=== PATIENT | male | born 1980 | race Caucasian/White ===

== ENCOUNTER 2017-07-13 11:23 | Emergency (ER) | payer OTHER ==
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
[2017-07-13] MEDS ORDERED: ONDANSETRON HCL INJ/PF 4 MG/2 ML SDV IV ONE ×2 (12:02→13:52)
[2017-07-13] MEDS ORDERED: HYDROMORPHONE HCL INJ/PF 2 MG/ML AMPULE IV ONE ×2 (12:02→13:52)
[2017-07-13 12:20] LABS: ABSOLUTE BASOPHILS # (AUTO) 0.1 10^3/uL (0.0-0.2); ABSOLUTE EOSINOPHILS # (AUTO) 0.4 10^3/uL (0.0-0.6); ABSOLUTE LYMPHOCYTES (AUTO) 1.7 10^3/uL (0.5-4.7); ABSOLUTE MONOCYTES (AUTO) 0.9 10^3/uL (0.1-1.4); ABSOLUTE NEUT (AUTO) 10.9 10^3/uL (1.7-8.2); BASOPHILS % (AUTO) 0.4 % (0-2); EOSINOPHILS % (AUTO) 2.9 % (0-6); HEMATOCRIT 50.7 % (37.9-51.0); HEMOGLOBIN 17.4 g/dL (13.5-17.0); LYMPHOCYTES % (AUTO) 12.2 % (13-45); MEAN CORPUSCULAR HEMOGLOBIN 29.9 pg (27.0-33.4); MEAN CORPUSCULAR HGB CONC 34.3 g/dL (32.0-36.0); MEAN CORPUSCULAR VOLUME 87 fl (80-97); MONOCYTES % (AUTO) 6.3 % (3-13); PLATELET COUNT 274 10^3/uL (150-450); RED BLOOD COUNT 5.81 10^6/uL (4.35-5.55); SEGMENTED NEUTROPHILS % (AUTO) 78.2 % (42-78); TOTAL CELLS COUNTED % (AUTO) 100 %
[2017-07-13 12:43] LABS: ALANINE AMINOTRANSFERASE 44 U/L (21-72); ALBUMIN 3.8 g/dL (3.5-5.0); ALKALINE PHOSPHATASE 60 U/L (38-126); ANION GAP 8 (5-19); ASPARTATE AMINO TRANSFERASE 34 U/L (17-59); BILIRUBIN,DIRECT 0.3 mg/dL (0.0-0.4); BILIRUBIN,TOTAL 0.4 mg/dL (0.2-1.3); BLOOD UREA NITROGEN 12 mg/dL (7-20); CARBON DIOXIDE 26 mmol/L (22-30); CHLORIDE 109 mmol/L (98-107); GLUCOSE 113 mg/dL (75-110); POTASSIUM 4.1 mmol/L (3.6-5.0); SODIUM 143.2 mmol/L (137-145); TOTAL PROTEIN 6.4 g/dL (6.3-8.2)
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
[2017-07-13 16:05] VITALS: BP 144/96
== END 2017-07-13 16:12 | disposition home or self-care (01) ==
LOC: ER 11:23
DX: S32.019A Unspecified fracture of first lumbar vertebra, initial encounter for closed fracture (principal); S32.029A Unspecified fracture of second lumbar vertebra, initial encounter for closed fracture; S32.039A Unspecified fracture of third lumbar vertebra, initial encounter for closed fracture; S32.049A Unspecified fracture of fourth lumbar vertebra, initial encounter for closed fracture; S50.312A Abrasion of left elbow, initial encounter; S80.212A Abrasion, left knee, initial encounter; M54.5 Low back pain; V29.40XA Motorcycle driver injured in collision with unspecified motor vehicles in traffic accident, initial encounter; F17.210 Nicotine dependence, cigarettes, uncomplicated
CPT/HCPCS: 96376; 99284; 96374; 96375; 36415; 82962; 85025; 80053; 72050; 72110; 72070; J1170; J2405

== ENCOUNTER 2017-11-12 16:27 | Emergency (ER) | payer MEDICARE, MEDICAID ==
[2017-11-12] MEDS ORDERED: HYDROMORPHONE HCL INJ/PF 2 MG/ML AMPULE IM ONE (17:23)
[2017-11-12] MEDS ORDERED: METOCLOPRAMIDE HCL 10 MG TABLET PO ONE (17:23)
[2017-11-12] MEDS ORDERED: DIPHENHYDRAMINE HCL 50 MG CAPSULE PO ONE (17:23)
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
--- NOTE | 2017-11-12 18:54 | ER Document Report ---
ED General - General Chief Complaint: High Blood Pressure Stated Complaint: BLOOD PRESSURE ISSUE Time Seen by Provider: 11/12/17 17:18 Mode of Arrival: Ambulatory Notes: Patient is a 37-year-old male that presents to the emergency department for chief complaint of high blood pressure and back pain. Patient states that he was at his eye doctor appointment today and they took his blood pressure and was elevated in the 190s systolic, so they did not see him and told him to go to the emergency department. He states that he has a history of high blood pressure, but has not been on medication in some time. He states that usually is higher when his back is irritated, which it is today. He has a history of chronic low back pain, and his back has been bothering him more. He currently rates the back pain as a 4 out of 10, nonradiating to the lower extremities, no saddle anesthesia or paresthesias, numbness, weakness or tingling in his lower extremities. He also did have a headache prior to ED arrival, he does have a history of headaches, due to his eye issues including glaucoma, but the headache is mild at this time, and nearly resolved from earlier. Denies any vomiting associated with it. Past Medical History: Glaucoma, chronic low back pain, hypertension Past Surgical History: Multiple eye surgeries, multiple lithotripsies, left knee surgery Social History: Admits to smoking cigarettes, denies alcohol or drug use Family History: Reviewed and noncontributory for presenting illness Allergies: Reviewed, see documented allergy list. REVIEW OF SYSTEMS: Unless otherwise stated in this report the patient's positive and negative responses for review of systems for constitutional, eyes, ENT, cardiovascular, respiratory, gastrointestinal, neurological, genitourinary, musculoskeletal, and integumentary systems and related systems to the presenting problem are either as stated in the HPI or were not pertinent or were negative for the symptoms and/or complaints related to the presenting medical problem. PHYSICAL EXAMINATION: Vital signs reviewed, nursing noted reviewed. GENERAL: Well-appearing, well-nourished and in no acute distress. HEAD: Atraumatic, normocephalic. EYES: Eyes appear normal, extraocular movements intact, sclera anicteric, conjunctiva are normal. PERRLA ENT: nares patent, oropharynx clear without exudates. Moist mucous membranes. No tenderness with palpation over the sinuses NECK: Normal range of motion, supple without lymphadenopathy LUNGS: Breath sounds clear to auscultation bilaterally and equal. No wheezes rales or rhonchi. HEART: Regular rate and rhythm without murmurs ABDOMEN: Soft, nontender, normoactive bowel sounds. No rebound, guarding, or rigidity. No masses appreciated. Back: Mild paraspinal tenderness the lumbar spine bilaterally, no midline tenderness or step-offs or deformities noted. EXTREMITIES: Nontender, good range of motion, no pitting or edema. NEUROLOGICAL: No focal neurological deficits. Moves all extremities spontaneously Motor and sensory grossly intact on exam. Deep tendon reflexes are +2/4 in the patellar and Achilles tendons bilaterally. Negative straight leg raising bilaterally PSYCH: Normal mood, normal affect. SKIN: Warm, Dry, normal turgor, no rashes or lesions noted on exposed skin TRAVEL OUTSIDE OF THE [place] IN LAST 30 DAYS: No - Related Data Allergies/Adverse Reactions: No Known Allergies Allergy (Verified 11/12/17 17:21) Past Medical History - General Information source: Patient - Social History Smoking Status: Current Every Day Smoker Chew tobacco use (# tins/day): No Frequency of alcohol use: Rare Drug Abuse: None Family History: Reviewed & Not Pertinent Patient has suicidal ideation: No Patient has homicidal ideation: No - Past Medical History Cardiac Medical History: Reports: Hx Hypertension Renal/ Medical History: Reports: Hx Kidney Stones. Denies: Hx Peritoneal Dialysis Traumatic Medical History: Reports: Hx Spine Fracture Past Surgical History: Reports: Hx Orthopedic Surgery - left knee Physical Exam - Vital signs Vitals: Temp Pulse Resp BP Pulse Ox 98.1 F 88 20 182/112 H 96 11/12/17 16:36 11/12/17 16:36 11/12/17 16:36 11/12/17 16:36 11/12/17 16:36 Course - Re-evaluation Re-evalutation: Patient seen and examined vital signs reviewed. Patient was treated with IV Dilaudid, Reglan, and Benadryl ordered by the triage provider, upon my evaluation the patient was feeling significantly better , his blood pressure was still high, he was given a dose of oral hydrochlorothiazide, which she was previously on and tolerated in the past. The patient was re-evaluated and was significantly improved, and stable blood pressure was improving as well Evaluation was most consistent with hypertension, requiring treatment, headache and chronic low back pain, patient was given a prescription for hydrochlorothiazide 25 mg for 2 weeks, while he tries to find a primary care provider. Patient was agreeable to take this medication, and advised if his symptoms returned to return to the emergency department if needed. Results were discussed with the patient at this point, after careful consideration I feel that that patient can be discharged from the emergency department, the patient was educated treatments and reasons to return to the emergency department based on their presumed diagnosis as noted above, they were advised to followup with a primary care physician in 2-3 days. Patient was agreeable to plan of care. *Note is created using voice recognition software and may contain spelling, syntax or grammatical errors. - Vital Signs Vital signs: Temp Pulse Resp BP Pulse Ox 98.1 F 88 13 174/115 H 96 11/12/17 16:36 11/12/17 16:36 11/12/17 19:01 11/12/17 19:01 11/12/17 19:01 Discharge - Discharge Clinical Impression: Hypertension Qualifiers: Hypertension type: unspecified Qualified Code(s): I10 - Essential (primary) hypertension Back pain Qualifiers: Back pain location: low back pain Chronicity: chronic Back pain laterality: bilateral Sciatica presence: without sciatica Qualified Code(s): M54.5 - Low back pain Disposition: HOME, SELF-CARE Instructions: High Blood Pressure, Requiring Treatment ([facility]), Hydrochlorothiazide ([facility]) Additional Instructions: Please return to the emergency department if you have any worsening, or concern of your symptoms. Please return to the emergency department if you develop chest pain, difficulty breathing, severe abdominal pain, or ongoing vomiting. Please follow-up with your primary care physician in 2-3 days and any other recommended physicians. If prescribed, take all medications as directed. If you have any questions or concerns do not hesitate to return the emergency department for evaluation. Take the hydrochlorothiazide as prescribed, please follow-up with a primary care physician, to continue this medication, you will need a refill. Prescriptions: Hydrochlorothiazide 25 mg PO DAILY #14 tablet Referrals: [facility] [Provider Group] - Follow up in 3-5 days NORIS KEN MD [COMMUNITY BASED STAFF] - Follow up in 3-5 days (primary care. )
[2017-11-12] MEDS ORDERED: HYDROCHLOROTHIAZIDE 25 MG TABLET PO ONE (19:07)
[2017-11-12 19:15] VITALS: BP 174/115
== END 2017-11-12 19:23 | disposition home or self-care (01) ==
LOC: ER 16:27
DX: I10 Essential (primary) hypertension (principal); M54.5 Low back pain; G89.29 Other chronic pain; Z87.442 Personal history of urinary calculi
CPT/HCPCS: 99283; A9270 ×2; J1170

== ENCOUNTER 2019-04-20 16:18 | Emergency (ER) | payer MEDICARE, MEDICAID ==
[2019-04-20] MEDS ORDERED: CLONIDINE HCL 0.1 MG TABLET PO ONE (17:19)
[2019-04-20] MEDS ORDERED: OXYMETAZOLINE HCL 0.05% NASAL SPRAY 15 ML BOTTLE NASL ONE (17:19)
--- NOTE | 2019-04-20 17:24 | ER Document Report ---
HPI - HPI Time Seen by Provider: 04/20/19 16:58 Pain Level: Denies Notes: Patient is a 39-year-old male with a history of hypertension, on lisinopril 20 mg, presents complaining of having a nosebleed intermittently for the past few days to the left nostril. Patient states that it began again this morning when he was feeling stressed out. He was able to get the bleeding stopped prior to arrival. Patient states that he is able to breathe out of the nostril. He is not on any blood thinning medications. He has not had any recent injury. Denies drug allergies. He is otherwise able to eat and drink without difficulty. He is urinating normally and having normal bowel movements. Denies any headache, fever, head injury, neck pain, changes in vision/speech/mentation/hearing, URI, sore throat, chest pain, palpitations, syncope, cough, shortness of breath, wheeze, dyspnea, abdominal pain, nausea/vomiting/diarrhea, urinary retention, dysuria, hematuria, loss of control of bowel or bladder, numbness/tingling, saddle anesthesia, muscle paralysis/weakness, or rash. - ROS Systems Reviewed and Negative: Yes All other systems reviewed and negative - REPRODUCTIVE Reproductive: DENIES: : Past Medical History - Social History Smoking Status: Never Smoker Family History: Reviewed & Not Pertinent Patient has suicidal ideation: No Patient has homicidal ideation: No - Past Medical History Cardiac Medical History: Reports: Hx Hypertension Renal/ Medical History: Reports: Hx Kidney Stones. Denies: Hx Peritoneal Dialysis Traumatic Medical History: Reports: Hx Spine Fracture Past Surgical History: Reports: Hx Orthopedic Surgery - left knee Vertical Provider Document - CONSTITUTIONAL Agree With Documented VS: Yes Notes: PHYSICAL EXAMINATION: GENERAL: Well-appearing, well-nourished and in no acute distress. HEAD: Atraumatic, normocephalic. EYES: Pupils equal round and reactive to light, extraocular movements intact, sclera anicteric, conjunctiva are normal. ENT: EAC clear b/l. TM's intact b/l without erythema, fluid, or perforation. Nares patent and without discharge. oropharynx dried blood without exudates. No tonsilar hypertrophy or erythema. Moist mucous membranes. No sinus tenderness. NECK: Normal range of motion, supple without lymphadenopathy LUNGS: Breath sounds clear to auscultation bilaterally and equal. No wheezes rales or rhonchi. HEART: Regular rate and rhythm without murmurs, rubs, gallops. ABDOMEN: Soft, nontender, nondistended abdomen. No guarding, no rebound. Normal bowel sounds present. No CVA tenderness bilaterally. Musculoskeletal: FROM to passive/active. Strength 5+/5. Extremities: No cyanosis, clubbing, or edema b/l. Peripheral pulses 2+. Capillary refill less than 3 seconds. NEUROLOGICAL: Cranial nerves grossly intact. Normal speech, normal gait. Normal sensory, motor exams PSYCH: Normal mood, normal affect. SKIN: Warm, Dry, normal turgor, no rashes or lesions noted. - INFECTION CONTROL TRAVEL OUTSIDE OF THE [place] IN LAST 30 DAYS: No Course - Re-evaluation Re-evalutation: 04/20/19 17:20 Patient is an afebrile, well-hydrated, 39-year-old male who presents with a resolved nosebleed to left nare and elevated blood pressure. He is otherwise asymptomatic. Vitals are except without significant tachycardia, tachypnea, or hypoxia. PE is otherwise unremarkable for any focal neurological deficits. Patient is nontoxic-appearing and is tolerating p.o. without difficulty. Afrin was provided today and epistaxis instructions reviewed thoroughly. Patient was given 1 dose of clonidine p.o. No further work-up warranted. Low suspicion for any acute intracranial pathology, ACS, PE, pneumothorax, pericarditis, dissection, acute blood loss warranting blood transfusion, shock, or other systemic emergent condition at this time. Patient aware that condition can change and he needs to monitor closely and seek medical attention if so. I will send him home with a low dose HCTZ that he may add to his lisinopril. Patient is to monitor blood pressure very closely. Recheck with your PCM in 3 to 5 days. Return to the ED with any other worsening/concerning symptoms. Patient is in agreement. - Vital Signs Vital signs: Temp Pulse Resp BP Pulse Ox 97.6 F 82 18 168/106 H 96 04/20/19 16:22 04/20/19 16:22 04/20/19 16:22 04/20/19 16:22 04/20/19 16:22 Discharge - Discharge Clinical Impression: Bleeding nose, Elevated blood pressure reading Condition: Stable Disposition: HOME, SELF-CARE Instructions: Nosebleed Instructions ([facility]) Additional Instructions: Maintain adequate fluid and food intake Take home medications as directed Low sodium/fat diet Monitor blood pressure daily and keep a log Monitor symptoms for any acute changes Recheck with your PCM in 3-5 days Consider a follow-up with cardiology/ENT Return to the ED with any worsening symptoms and/or development of fever, headache, chest pain, palpitations, syncope, shortness of breath, trouble breathing, abdominal pain, n/v/d, blood in stool/urine, loss of control of bowel/bladder, urinary retention, muscle weakness/paralysis, numbness/tingling, or other worsening symptoms that are concerning to you. Prescriptions: Hydrochlorothiazide 12.5 mg PO DAILY #30 tablet Forms: Elevated Blood Pressure Referrals: DEWAYNE MANLEY DO [ASSOCIATE] - Follow up as needed SALO DUTTON MD [ACTIVE STAFF] - Follow up in 1 week
[2019-04-20 17:30] VITALS: BP 153/88
== END 2019-04-20 18:11 | disposition home or self-care (01) ==
LOC: ER 16:18
DX: R04.0 Epistaxis (principal); I10 Essential (primary) hypertension; Z87.442 Personal history of urinary calculi
CPT/HCPCS: 99283; A9270 ×2; J3490

== ENCOUNTER 2019-06-24 13:17 | Inpatient (IN) | payer MEDICARE, MEDICAID ==
--- NOTE | 2019-06-24 15:08 | ER Document Report ---
ED General - General Chief Complaint: Chest Pain Stated Complaint: COUGH,CHEST PAIN Primary Care Provider: [facility] [Provider Group] - Follow up as needed Notes: 39-year-old male presents with ongoing chest pain shortness of breath it has been is intermittent substernal radiates to left shoulder not down the arm with no numbness or tingling. Has had intermittent shortness of breath cough with productive sputum since November and has been treated for bronchitis several times. He has a long smoking history. No orthopnea or leg swelling. No diagnosis of cardiac problems TRAVEL OUTSIDE OF THE [place] IN LAST 30 DAYS: No - Related Data Allergies/Adverse Reactions: No Known Allergies Allergy (Verified 11/12/17 17:21) Past Medical History - Social History Smoking Status: Current Every Day Smoker Smoking Education Provided: Yes - The patient ED visit today was directly related to their abuse of tobacco. Family History: Reviewed & Not Pertinent - Past Medical History Cardiac Medical History: Reports: Hx Hypertension Renal/ Medical History: Reports: Hx Kidney Stones. Denies: Hx Peritoneal Dialysis Traumatic Medical History: Reports: Hx Spine Fracture Past Surgical History: Reports: Hx Orthopedic Surgery - left knee Physical Exam - Vital signs Vitals: Temp Pulse Resp BP Pulse Ox 97.8 F 102 H 24 H 160/127 H 97 06/24/19 14:53 06/24/19 14:53 06/24/19 14:53 06/24/19 14:53 06/24/19 14:53 Course - Re-evaluation Re-evalutation: 06/24/19 17:00 Patient presents with worsening shortness of breath cough some of it is exertional most concerning for heart failure with intermittent chest pain. He probably does not have bronchitis. We will test for COVID check x-ray for pneumonia but is more likely going to be cardiac in nature given his risk factors despite his young age. BNP is elevated, cardiomegaly on x-ray. Patient will be admitted for further work-up. Discussed with Dr. FIDE Mendez. Niru testing is pending. - Vital Signs Vital signs: Temp Pulse Resp BP Pulse Ox 98.7 F 102 H 24 H 160/127 H 97 06/24/19 15:06 06/24/19 14:53 06/24/19 14:53 06/24/19 14:53 06/24/19 14:53 - Laboratory Result Diagrams: 06/24/19 15:51 06/24/19 15:51 Laboratory results interpreted by me: 06/24/19 06/24/19 06/24/19 15:51 15:51 15:51 RDW 14.3 H Glucose 216 H NT-Pro-B Natriuret Pep 2060 H - Diagnostic Test Radiology reviewed: Image reviewed, Reports reviewed - EKG Interpretation by Me Rate: Normal Rhythm: NSR Voltage: Consistant with LVH When compared to previous EKG there are: Previous EKG unavailable Discharge - Discharge Clinical Impression: Shortness of breath Condition: Fair Disposition: ADMITTED INPATIENT Admitting Provider: Andrew (Hospitalist) Unit Admitted: Telemetry Additional Instructions: As we discussed your symptoms might be due to bronchitis and smoking and we are going to treat this, but you need a full evaluation as an outpatient for congestive heart failure and heart disease. We did not find wet lungs, pulmonary edema, pneumonia, or coronavirus today on your testing. Follow-up with your regular doctor within 5 days. Prescriptions: Ipratropium/Albuterol Sulfate [Combivent Respimat 4 gm Mdi] 1 puff IH Q4 #1 aer.w.adap Prednisone [Deltasone 20 mg Tablet] 3 tab PO DAILY 5 Days tablet Referrals: [facility] [Provider Group] - Follow up as needed
--- NOTE | 2019-06-24 15:43 | RADIOLOGY REPORT (SQ) ---
EXAM DESCRIPTION: CHEST SINGLE VIEW IMAGES COMPLETED DATE/TIME: 06/24/2019 3:29 pm REASON FOR STUDY: CP COMPARISON: None. EXAM PARAMETERS: NUMBER OF VIEWS: One view. TECHNIQUE: An AP view of the chest was obtained. RADIATION DOSE: NA LIMITATIONS: None. FINDINGS: LUNGS AND PLEURA: No consolidation, pleural effusion or pneumothorax. MEDIASTINUM AND HILAR STRUCTURES: No mediastinal or hilar contour abnormality. HEART AND VASCULAR STRUCTURES: The cardiac silhouette is borderline enlarged. BONES: No acute findings. HARDWARE: None in the chest. OTHER: No other finding. IMPRESSION: Borderline cardiomegaly without a superimposed acute cardiopulmonary process. TECHNICAL DOCUMENTATION: JOB ID: [id number] 2010 [employer]- All Rights Reserved Reading location - IP/workstation name: [email or web address]
[2019-06-24 16:13] LABS: ABSOLUTE BASOPHILS # (AUTO) 0.1 10^3/uL (0.0-0.2); ABSOLUTE EOSINOPHILS # (AUTO) 0.5 10^3/uL (0.0-0.6); ABSOLUTE MONOCYTES (AUTO) 0.7 10^3/uL (0.1-1.4); ABSOLUTE NEUT (AUTO) 7.3 10^3/uL (1.7-8.2); BASOPHILS % (AUTO) 0.7 % (0-2); EOSINOPHILS % (AUTO) 4.6 % (0-6); HEMATOCRIT 42.2 % (37.9-51.0); HEMOGLOBIN 14.6 g/dL (13.5-17.0); LYMPHOCYTES % (AUTO) 19.3 % (13-45); MEAN CORPUSCULAR HEMOGLOBIN 30.4 pg (27.0-33.4); MEAN CORPUSCULAR HGB CONC 34.5 g/dL (32.0-36.0); MEAN CORPUSCULAR VOLUME 88 fl (80-97); MONOCYTES % (AUTO) 6.3 % (3-13); PLATELET COUNT 285 10^3/uL (150-450); RED BLOOD COUNT 4.79 10^6/uL (4.35-5.55); RED CELL DISTRIBUTION WIDTH 14.3 % (11.5-14.0); SEGMENTED NEUTROPHILS % (AUTO) 69.1 % (42-78); TOTAL CELLS COUNTED % (AUTO) 100 %; WHITE BLOOD COUNT 10.5 10^3/uL (4.0-10.5)
[2019-06-24 16:21] LABS: ANION GAP 7 (5-19); BLOOD UREA NITROGEN 13 mg/dL (7-20); CALCIUM 8.7 mg/dL (8.4-10.2); CARBON DIOXIDE 27 mmol/L (22-30); CHLORIDE 104 mmol/L (98-107); GLUCOSE 216 mg/dL (75-110); POTASSIUM 3.8 mmol/L (3.6-5.0)
[2019-06-24] MEDS ORDERED: ZOLPIDEM TARTRATE 5 MG TABLET PO PRN (17:20)
[2019-06-24] MEDS ORDERED: IPRATROPIUM/ALBUTEROL 0.5-2.5 MG/3 ML AMPUL NEB PRN (17:20)
[2019-06-24] MEDS ORDERED: ONDANSETRON 4 MG TAB.RAPDIS PO PRN (17:20)
[2019-06-24] MEDS ORDERED: OXYCODONE-ACETAMINOPHEN 5-325 MG TABLET PO PRN (17:20)
[2019-06-24] MEDS ORDERED: NITROGLYCERIN 0.4 MG/TAB 25 TAB/BOTTLE SL PRN (17:26)
[2019-06-24 18:05] LABS: URINE AMPHETAMINES SCREEN NEGATIVE; URINE BARBITURATES SCREEN NEGATIVE; URINE BENZODIAZEPINES SCREEN NEGATIVE; URINE COCAINE SCREEN NEGATIVE; URINE MARIJUANA (THC) SCREEN NEGATIVE; URINE METHADONE SCREEN NEGATIVE; URINE PHENCYCLIDINE SCREEN NEGATIVE
[2019-06-24] MEDS: ENOXAPARIN SODIUM INJ 40 MG/0.4 ML DISP.SYRIN SUBCUT SCH (18:26)
[2019-06-24] MEDS: NITROGLYCERIN 2% OINTMENT 1 GM PACKET TP SCH ×2 (18:26→23:10)
[2019-06-24] MEDS: HYDRALAZINE HCL INJ/PF 20 MG/1 ML SDV IV PRN (18:26)
--- NOTE | 2019-06-24 18:26 | PDOC H&P ---
History of Present Illness Admission Date/PCP: 06/24/19 17:19 Patient complains of: Difficulty breathing and shortness of breath History of Present Illness: LUIS ROCHA is a 39 year old male Patient presents to the emergency room with complaints of difficulty breathing and shortness of breath. He also complains of chest pain with radiation to his left shoulder. He says he has had a cough intermittently since November. This is associated with a whitish sputum. He does complain of difficulty ambulating as this is associated with shortness of breath. He denies any leg swelling. In the emergency room patient was found to have a pretty elevated blood pressure with systolic of more than 120. He claims to be compliant with his medications and said he did not use it only today. He admits to not seen a PCP for a while. He denies any orthopnea dizziness. He denies any prior history of coronary artery disease. His chest x-ray shows cardiomegaly Past Medical History Cardiac Medical History: Reports: Hypertension Past Surgical History Past Surgical History: Reports: Orthopedic Surgery - left knee Social History Information Source: Patient Smoking Status: Current Every Day Smoker - Advance Directive Resuscitation Status: Full Code Family History Family History: Reviewed & Not Pertinent Parental Family History Reviewed: Yes Children Family History Reviewed: Yes Sibling(s) Family History Reviewed.: Yes Medication/Allergy Home Medications: Lidocaine [Lidovex] 1 gm TP BIDP PRN #1 cream..g. 07/13/17 Methocarbamol [Robaxin 750 mg Tablet] 750 mg PO ASDIR PRN #40 tablet 07/13/17 Ondansetron [Ondansetron Odt] 4 mg PO Q4HP PRN #20 tab.rapdis 07/13/17 Oxycodone HCl/Acetaminophen [Percocet 5-325 mg Tablet] 1 - 2 tab PO Q4HP PRN #30 tab 07/13/17 Hydrochlorothiazide 25 mg PO DAILY #14 tablet 11/12/17 Hydrochlorothiazide 12.5 mg PO DAILY #30 tablet 04/20/19 Ipratropium/Albuterol Sulfate [Combivent Respimat 4 gm Mdi] 1 puff IH Q4 #1 aer.w.adap 06/24/19 Prednisone [Deltasone 20 mg Tablet] 3 tab PO DAILY 5 Days tablet 06/24/19 Allergies/Adverse Reactions: No Known Allergies Allergy (Verified 11/12/17 17:21) Review of Systems All systems: reviewed and no additional remarkable complaints except as stated Cardiovascular: PRESENT: dyspnea on exertion, orthropnea. ABSENT: chest pain, palpitations Respiratory: PRESENT: dyspnea. ABSENT: cough Physical Exam Vital Signs: Temp Pulse Resp BP Pulse Ox 98.7 F 102 H 24 H 160/127 H 97 06/24/19 15:06 06/24/19 14:53 06/24/19 14:53 06/24/19 14:53 06/24/19 14:53 Intake & Output 06/23/19 06/24/19 06/25/19 06:59 06:59 06:59 Weight 131.542 kg General appearance: PRESENT: no acute distress, well-developed, well-nourished Head exam: PRESENT: atraumatic, normocephalic Eye exam: PRESENT: conjunctiva pink, EOMI, PERRLA. ABSENT: scleral icterus Ear exam: PRESENT: normal external ear exam Mouth exam: PRESENT: moist, tongue midline Neck exam: ABSENT: carotid bruit, JVD, lymphadenopathy, thyromegaly Respiratory exam: PRESENT: clear to auscultation gio. ABSENT: rales, rhonchi, wheezes Cardiovascular exam: PRESENT: RRR, +S1, +S2. ABSENT: diastolic murmur, rubs, systolic murmur Pulses: PRESENT: normal dorsalis pedis pul Vascular exam: PRESENT: normal capillary refill GI/Abdominal exam: PRESENT: normal bowel sounds, soft. ABSENT: distended, guard ing, mass, organolmegaly, rebound, tenderness Rectal exam: PRESENT: deferred Extremities exam: PRESENT: full ROM. ABSENT: calf tenderness, clubbing, pedal edema Neurological exam: PRESENT: alert, awake, oriented to person, oriented to place, oriented to time, oriented to situation, CN II-XII grossly intact. ABSENT: motor sensory deficit Psychiatric exam: PRESENT: normal mood. ABSENT: homicidal ideation, suicidal ideation Skin exam: PRESENT: dry, intact, warm. ABSENT: cyanosis, rash Results Laboratory Results: 06/24/19 15:51 06/24/19 15:51 06/24/19 06/24/19 15:51 15:51 WBC 10.5 RBC 4.79 Hgb 14.6 Hct 42.2 MCV 88 MCH 30.4 MCHC 34.5 RDW 14.3 H Plt Count 285 Seg Neutrophils % 69.1 Sodium 137.8 Potassium 3.8 Chloride 104 Carbon Dioxide 27 Anion Gap 7 BUN 13 Creatinine 1.01 Est GFR ( Amer) > 60 Glucose 216 H Calcium 8.7 06/24/19 15:51 NT-Pro-B Natriuret Pep 2060 H Impressions: Chest X-Ray 06/24/19 15:00 IMPRESSION: Borderline cardiomegaly without a superimposed acute cardiopulmonary process. Assessment and Plan - Diagnosis (1) CHF (congestive heart failure) Qualifiers: Heart failure type: unspecified Heart failure chronicity: acute Qualified Code(s): I50.9 - Heart failure, unspecified Is this a current diagnosis for this admission?: Yes Plan: Patient actually has no prior history of CHF although his clinical presentation is consistent with this. At this time we will have to wait to review the echocardiogram to determine what class of CHF he does have We will continue with diuresis, and attempt to control blood pressure. Consultations will depend on his hospital course EKG shows sinus tachycardia with nonspecific T wave abnormalities. Drug screen is negative (2) Hypertensive emergency Is this a current diagnosis for this admission?: Yes Plan: Patient does have a history of hypertension. He says he is compliant with his medications. Blood pressure is uncontrolled. Will place him on Nitropaste which may also help with his preload reduction. Will allow adjust his medicati ons for optimal blood pressure control (3) Chest pain at rest Is this a current diagnosis for this admission?: Yes Plan: We will obtain serial cardiac enzymes and follow-up with echocardiogram in a.m. - Time Time Spent with patient: 35 or more minutes - Inpatient Certification Based on my medical assessment, after consideration of the patient's comorbidities, presenting symptoms, or acuity I expect that the services needed warrant INPATIENT care.: Yes Medical Necessity: Risk of Complication if Not Cared For in Hospital
[2019-06-24] MEDS: AMLODIPINE BESYLATE 5 MG TABLET PO SCH (19:46)
--- NOTE | 2019-06-24 20:48 | EKG REPORT ---
SEVERITY:- ABNORMAL ECG - SINUS TACHYCARDIA PROBABLE LEFT ATRIAL ABNORMALITY NONSPECIFIC T ABNORMALITIES, LATERAL LEADS BORDERLINE PROLONGED QT INTERVAL : Confirmed by: Nasima Delaney 24-Jun-2019 20:48:03
[2019-06-24] MEDS: FUROSEMIDE INJ/PF 40 MG/4 ML SDV IV SCH (22:08)
[2019-06-24] MEDS: ACETAMINOPHEN 325 MG TABLET PO PRN (22:11)
[2019-06-25] MEDS: HYDRALAZINE HCL INJ/PF 20 MG/1 ML SDV IV PRN ×2 (00:37→15:50)
[2019-06-25 06:05] LABS: HEMATOCRIT 42.2 % (37.9-51.0); HEMOGLOBIN 14.6 g/dL (13.5-17.0); MEAN CORPUSCULAR HEMOGLOBIN 30.4 pg (27.0-33.4); MEAN CORPUSCULAR HGB CONC 34.5 g/dL (32.0-36.0); MEAN CORPUSCULAR VOLUME 88 fl (80-97); PLATELET COUNT 263 10^3/uL (150-450); RED CELL DISTRIBUTION WIDTH 14.4 % (11.5-14.0); WHITE BLOOD COUNT 8.1 10^3/uL (4.0-10.5)
[2019-06-25 06:37] LABS: DIRECT LDL 127 mg/dL (<100)
[2019-06-25 06:39] LABS: CHOLESTEROL 156.91 mg/dL (0-200); TRIGLYCERIDES 121 mg/dL (<150); VLDL CHOLESTEROL 24.2 mg/dL (10-31)
[2019-06-25] MEDS: ACETAMINOPHEN 325 MG TABLET PO PRN ×2 (06:47→17:58)
[2019-06-25] MEDS: NITROGLYCERIN 2% OINTMENT 1 GM PACKET TP SCH ×3 (06:48→17:05)
[2019-06-25] MEDS: FUROSEMIDE INJ/PF 40 MG/4 ML SDV IV SCH (09:10)
[2019-06-25] MEDS: DOCUSATE SODIUM 100 MG CAPSULE PO SCH ×2 (09:12→09:30)
[2019-06-25] MEDS: ENOXAPARIN SODIUM INJ 40 MG/0.4 ML DISP.SYRIN SUBCUT SCH (09:12)
[2019-06-25] MEDS: AMLODIPINE BESYLATE 5 MG TABLET PO SCH (09:13)
[2019-06-25] MEDS: ASPIRIN 81 MG TABLET, CHEWABLE PO SCH (09:13)
[2019-06-25] MEDS ORDERED: METOPROLOL TARTRATE 25 MG TABLET PO SCH (10:00)
--- NOTE | 2019-06-25 11:06 | PDOC CONSULTATION ---
Consultation Consult Date: 06/25/19 Attending physician:: DON MULTANI Provider Consulted: ELIZABETH DILLARD Consult reason:: Chest pain History of Present Illness Admission Date/PCP: 06/24/19 17:19 History of Present Illness: LUIS ROCHA is a 39 year old male with history of hypertension, hypoglycemia, tobacco use of 1/2 pack/day for 12 years and family history of premature coronary artery disease and heart failure in his mother who is consulted to our service for evaluation of chest pain. The patient states that he had been treated for bronchitis since November 2018 without any improvement. 2 days prior to admission he began with chest pain that he describes as a dull ache with episodes of sharp pain, lasting anywhere from several minutes to 2 hours, associated with shortness of breath, with radiation to the left arm particularly the joints of the elbow, shoulder and wrist. He denied associated dizziness, lightheadedness, palpitations, syncope, presyncope or lower extremity edema. He came to the emergency room yesterday and was found to have a blood pressure of 160/127 with indeterminate troponins and elevated proBNP. The patient is currently examined in his room and he is laying comfortably in his bed without any cardiac complaints. Physical exam on 06/25/2019: GENERAL: Pleasant and conversational. Oriented x3 with normal mood. Not in acute distress. Well groomed and well developed. HEENT: Normocephalic, atraumatic. Pupils equal. Sclerae anicteric. Oropharynx moist. NECK: No JVD. No carotid bruits. LUNGS: Clear to auscultation bilaterally. Normal respiratory effort without the use of accessory muscles or intercostal retractions. CARDIOVASCULAR: Regular rate and rhythm, normal S1 and S2 without murmurs, rubs, or gallops. PMI not displaced. ABDOMEN: No masses or tenderness to palpation. No bruit. No splenomegaly or hepatomegaly. No abdominal aorta bruit noted. EXTREMITIES: No edema, no cyanosis, no clubbing. +2 pulses femoral and pedal pulses bilaterally. SKIN: No lesions or rashes. MUSCULOSKELETAL: No chest tenderness to palpation. NEUROLOGIC: Nonfocal. No gross sensory or motor deficits bilateral upper or lower extremities. Past Medical History Cardiac Medical History: Reports: Hypertension Psychiatric Medical History: Denies: Depression Past Surgical History Past Surgical History: Reports: Orthopedic Surgery - left knee Social History Smoking Status: Current Every Day Smoker - Advance Directive Resuscitation Status: Full Code Family History Family History: Reviewed & Not Pertinent Parental Family History Reviewed: Yes Children Family History Reviewed: Yes Sibling(s) Family History Reviewed.: Yes Medication/Allergy Home Medications: Lisinopril/Hydrochlorothiazide [Lisinopril-Hctz 10-12.5 mg Tab] 1 tab PO DAILY 06/25/19 Allergies/Adverse Reactions: No Known Allergies Allergy (Verified 11/12/17 17:21) Physical Exam Vital Signs: Temp Pulse Resp BP Pulse Ox 97.5 F 97 16 163/119 H 97 06/25/19 09:00 06/25/19 09:00 06/25/19 09:00 06/25/19 10:20 06/25/19 09:00 Intake & Output 06/24/19 06/25/19 06/26/19 06:59 06:59 06:59 Intake Total 700 Balance 700 Weight 131.8 kg Results Laboratory Results: 06/25/19 05:09 06/24/19 15:51 06/24/19 06/24/19 06/24/19 15:51 15:51 15:51 WBC 10.5 RBC 4.79 Hgb 14.6 Hct 42.2 MCV 88 MCH 30.4 MCHC 34.5 RDW 14.3 H Plt Count 285 Seg Neutrophils % 69.1 Sodium 137.8 Potassium 3.8 Chloride 104 Carbon Dioxide 27 Anion Gap 7 BUN 13 Creatinine 1.01 Est GFR ( Amer) > 60 Glucose 216 H Calcium 8.7 Triglycerides Cholesterol LDL Cholesterol Direct VLDL Cholesterol HDL Cholesterol TSH 2.07 06/25/19 06/25/19 05:04 05:09 WBC 8.1 RBC 4.80 Hgb 14.6 Hct 42.2 MCV 88 MCH 30.4 MCHC 34.5 RDW 14.4 H Plt Count 263 Seg Neutrophils % Sodium Potassium Chloride Carbon Dioxide Anion Gap BUN Creatinine Est GFR ( Amer) Glucose Calcium Triglycerides 121 Cholesterol 156.91 LDL Cholesterol Direct 127 H VLDL Cholesterol 24.2 HDL Cholesterol 27 L TSH 06/24/19 06/24/19 06/24/19 15:51 15:51 22:31 Troponin I 0.056 0.065 NT-Pro-B Natriuret Pep 2060 H 06/25/19 05:04 Troponin I 0.070 NT-Pro-B Natriuret Pep Impressions: Chest X-Ray 06/24/19 15:00 IMPRESSION: Borderline cardiomegaly without a superimposed acute cardiopulmonary process. 06/25/19 05:09 06/24/19 15:51 MCV 88 fl (80-97) 06/25/19 05:09 MCH 30.4 pg (27.0-33.4) 06/25/19 05:09 MCHC 34.5 g/dL (32.0-36.0) 06/25/19 05:09 RDW 14.4 % (11.5-14.0) H 06/25/19 05:09 Seg Neutrophils % 69.1 % (42-78) 06/24/19 15:51 Chloride 104 mmol/L (98-107) 06/24/19 15:51 Carbon Dioxide 27 mmol/L (22-30) 06/24/19 15:51 Anion Gap 7 (5-19) 06/24/19 15:51 Est GFR ( Amer) > 60 (>60) 06/24/19 15:51 Glucose 216 mg/dL (75-110) H 06/24/19 15:51 Calcium 8.7 mg/dL (8.4-10.2) 06/24/19 15:51 Triglycerides 121 mg/dL (<150) 06/25/19 05:04 Cholesterol 156.91 mg/dL (0-200) 06/25/19 05:04 LDL Cholesterol Direct 127 mg/dL (<100) H 06/25/19 05:04 VLDL Cholesterol 24.2 mg/dL (10-31) 06/25/19 05:04 HDL Cholesterol 27 mg/dL (>40) L 06/25/19 05:04 TSH 2.07 uIU/mL (0.47-4.68) 06/24/19 15:51 06/24/19 06/24/19 06/24/19 15:51 15:51 22:31 Troponin I 0.056 0.065 NT-Pro-B Natriuret Pep 2060 H 06/25/19 05:04 Troponin I 0.070 NT-Pro-B Natriuret Pep Current Medication List Generic Name Dose Route Start Last Admin Trade Name Freq PRN Reason Stop Dose Admin Acetaminophen 650 mg 06/24/19 17:20 06/25/19 06:47 Tylenol 325 Mg Tablet PO 07/24/19 17:19 650 mg Q4HP PRN Administration FOR PAIN SCALE 1-2 Albuterol/Ipratropium 3 ml 06/24/19 17:20 Duoneb 3 Ml Ampul NEB 07/24/19 17:19 RTQ6HP PRN SHORTNESS OF BREATH Amlodipine Besylate 5 mg 06/24/19 19:00 06/25/19 09:13 Norvasc 5 Mg Tablet PO 07/24/19 18:59 5 mg DAILY CHIKA Administration Aspirin 81 mg 06/25/19 10:00 06/25/19 09:13 Aspirin 81 Mg Chewable Tablet PO 07/25/19 09:59 81 mg DAILY CHIKA Administration Docusate Sodium 100 mg 06/25/19 10:00 06/25/19 09:30 Colace 100 Mg Capsule PO 07/25/19 09:59 Not Given DAILY CHIKA Enoxaparin Sodium 40 mg 06/24/19 18:30 06/25/19 09:12 Lovenox Inj 40 Mg/0.4 Ml Disp.Syrin SUBCUT 07/24/19 18:29 40 mg DAILY CHIKA Administration Furosemide 40 mg 06/24/19 22:00 06/25/19 09:10 Lasix Inj/Pf 40 Mg/4 Ml Sdv IV 07/24/19 21:59 40 mg Q12 CHIKA Administration Hydralazine HCl 10 mg 06/24/19 17:28 06/25/19 00:37 Apresoline Inj/Pf 20 Mg/1 Ml Sdv IV 07/24/19 17:27 10 mg Q4HP PRN Administration Give For Sbp >180 / Dbp > 110 Metoprolol Tartrate 25 mg 06/25/19 10:00 06/25/19 09:13 Lopressor 25 Mg Tablet PO 07/25/19 09:59 25 mg DAILY CHIKA Administration Nitroglycerin 1 gm 06/24/19 18:00 06/25/19 06:48 Nitrol 2% Ointment 1gm Packet TP 07/24/19 17:59 1 gm Q6 CHIKA Administration Nitroglycerin 1 tab 06/24/19 17:26 Nitrostat 0.4 Mg (1/150 Gr) Tabs 25/Bottle SL 07/24/19 17:25 Q5MP PRN FOR CHEST PAIN Ondansetron HCl 4 mg 06/24/19 17:20 Zofran Odt 4 Mg Tablet PO 07/24/19 17:19 Q6HP PRN FOR NAUSEA/VOMITING Oxycodone/Acetaminophen 1 tab 06/24/19 17:20 06/24/19 23:18 Percocet 5-325 Mg Tablet PO 07/01/19 17:19 1 tab Q6HP PRN Administration FOR PAIN SCALE 3-4 Zolpidem Tartrate 5 mg 06/24/19 17:20 Ambien 5 Mg Tablet PO 07/01/19 17:19 HSP PRN SLEEP OR INSOMNIA Assessment & Plan - Diagnosis (1) Chest pain Plan: 39-year-old male with cardiac risk factors of gender, sedentary lifestyle, hypertension and smoking who was admitted to our facility yesterday for a 2-day history of intermittent chest pain. His cardiac troponins have been in determinate but trending up and he also have an elevated proBNP without evidence of fluid overload on exam or chest x-ray. He was quite hypertensive in the emergency room. While it is possible that he had a hypertensive emergency resulting in the above abnormalities, he also has enough cardiac risk factors as to warrant further ischemic work-up. Recommendations: -Continue with cardiac telemetry. -Continue to trend troponins until they peak. -Discontinue metoprolol. -Discontinue amlodipine. -Echocardiogram as scheduled. -Start Coreg 6.25 mg twice daily. -Start lisinopril 20 mg daily. -We will plan on Lexiscan nuclear stress test tomorrow if cardiac troponin continue to be negative. -We will continue to follow with you. (2) CHF (congestive heart failure) Qualifiers: Heart failure type: unspecified Heart failure chronicity: acute Qualified Code(s): I50.9 - Heart failure, unspecified Is this a current diagnosis for this admission?: Yes Plan: The patient is currently euvolemic by physical exam and no evidence of fluid overload on chest x-ray. The etiology of his elevated proBNP could just be secondary to his episode of hypertension but also from possible cardiac ischemia. Recommendations: -Ischemic work-up as delineated above. -Low-sodium diet. -Strict intake and output. -Discontinue metoprolol and Norvasc. -Start carvedilol 6.25 mg daily and lisinopril 20 mg daily. -Echocardiogram as scheduled. (3) Hypertensive emergency Plan: The patient continues to be hypertensive. His goal blood pressure should be 130/80 or below. Recommendations: -Discontinue Toprol and Norvasc. -Start carvedilol 6.25 mg twice daily and lisinopril 20 mg daily. -Low-sodium diet.
[2019-06-25] MEDS ORDERED: ENOXAPARIN SODIUM INJ 40 MG/0.4 ML DISP.SYRIN SUBCUT ONE (11:16)
--- NOTE | 2019-06-25 11:35 | PDOC PROGRESS REPORT ---
Subjective Progress Note for:: 06/25/19 Subjective:: Patient complaint of chest pain which is radiating to left arm. Denies any nausea and vomiting. Reason For Visit: NEW ONSET CHF, HYPERTENSIVE EMERGENCY Physical Exam Vital Signs: Temp Pulse Resp BP Pulse Ox 97.5 F 97 16 163/119 H 97 06/25/19 09:00 06/25/19 09:00 06/25/19 09:00 06/25/19 10:20 06/25/19 09:00 Intake & Output 06/24/19 06/25/19 06/26/19 06:59 06:59 06:59 Intake Total 700 Balance 700 Weight 131.8 kg General appearance: PRESENT: no acute distress, obese, well-developed, well- nourished Head exam: PRESENT: atraumatic, normocephalic Eye exam: PRESENT: conjunctiva pink, EOMI, PERRLA. ABSENT: scleral icterus Ear exam: PRESENT: normal external ear exam Mouth exam: PRESENT: moist, tongue midline Neck exam: ABSENT: carotid bruit, JVD, lymphadenopathy, thyromegaly Respiratory exam: PRESENT: clear to auscultation gio. ABSENT: rales, rhonchi, wheezes Cardiovascular exam: PRESENT: RRR, +S1, +S2. ABSENT: diastolic murmur, rubs, systolic murmur Pulses: PRESENT: normal dorsalis pedis pul Vascular exam: PRESENT: normal capillary refill GI/Abdominal exam: PRESENT: normal bowel sounds, soft. ABSENT: distended, guarding, mass, organolmegaly, rebound, tenderness Rectal exam: PRESENT: deferred Extremities exam: PRESENT: full ROM. ABSENT: calf tenderness, clubbing, pedal edema Neurological exam: PRESENT: alert, awake, oriented to person, oriented to place, oriented to time, oriented to situation, CN II-XII grossly intact. ABSENT: motor sensory deficit Psychiatric exam: PRESENT: appropriate affect, normal mood. ABSENT: homicidal ideation, suicidal ideation Skin exam: PRESENT: dry, intact, warm. ABSENT: cyanosis, rash Results Laboratory Results: 06/25/19 05:09 06/24/19 15:51 06/24/19 06/24/19 06/24/19 15:51 15:51 15:51 WBC 10.5 RBC 4.79 Hgb 14.6 Hct 42.2 MCV 88 MCH 30.4 MCHC 34.5 RDW 14.3 H Plt Count 285 Seg Neutrophils % 69.1 Sodium 137.8 Potassium 3.8 Chloride 104 Carbon Dioxide 27 Anion Gap 7 BUN 13 Creatinine 1.01 Est GFR ( Amer) > 60 Glucose 216 H Calcium 8.7 Triglycerides Cholesterol LDL Cholesterol Direct VLDL Cholesterol HDL Cholesterol TSH 2.07 06/25/19 06/25/19 05:04 05:09 WBC 8.1 RBC 4.80 Hgb 14.6 Hct 42.2 MCV 88 MCH 30.4 MCHC 34.5 RDW 14.4 H Plt Count 263 Seg Neutrophils % Sodium Potassium Chloride Carbon Dioxide Anion Gap BUN Creatinine Est GFR ( Amer) Glucose Calcium Triglycerides 121 Cholesterol 156.91 LDL Cholesterol Direct 127 H VLDL Cholesterol 24.2 HDL Cholesterol 27 L TSH 06/24/19 06/24/19 06/24/19 15:51 15:51 22:31 Troponin I 0.056 0.065 NT-Pro-B Natriuret Pep 2060 H 06/25/19 05:04 Troponin I 0.070 NT-Pro-B Natriuret Pep Impressions: Chest X-Ray 06/24/19 15:00 IMPRESSION: Borderline cardiomegaly without a superimposed acute cardiopulmonary process. Assessment and Plan - Diagnosis (1) CHF (congestive heart failure) Qualifiers: Heart failure type: unspecified Heart failure chronicity: acute Qualified Code(s): I50.9 - Heart failure, unspecified Is this a current diagnosis for this admission?: Yes (2) Hypertensive emergency Is this a current diagnosis for this admission?: Yes Plan: Blood pressure improved but will continue to monitor adjust medications as needed (3) Chest pain at rest Is this a current diagnosis for this admission?: Yes (4) Angina at rest Is this a current diagnosis for this admission?: Yes Plan: She has an indeterminate elevated troponin although with no EKG changes. Coupled with his poorly controlled blood pressure and his risk factors including smoking patient is at risk for coronary artery disease. Cardiology consult has been obtained and noted. A stress test will be scheduled for a.m. His medications have been adjusted. I have put him on Lovenox temporarily at full strength and have added aspirin to his regimen. Beta-bella has been changed to Coreg as cardiology recommendation and lisinopril has also been added. We will follow-up on echocardiogram as ordered
[2019-06-25] MEDS ORDERED: ENOXAPARIN SODIUM INJ 100 MG/1 ML DISP.SYRIN SUBCUT ONE (12:15)
[2019-06-25] MEDS ORDERED: LISINOPRIL 10 MG TABLET PO ONE (17:06)
[2019-06-25] MEDS: CARVEDILOL 6.25 MG TABLET PO SCH ×2 (17:21→21:34)
--- NOTE | 2019-06-25 17:44 | XCELERA REPORT ---
[address] [address] Transthoracic Echocardiogram Report Name: LUIS ROCHA Age: 39 yrs Gender: Male : 1980 Patient Status: Inpatient Patient Location: [address] [place] [address] Study Date: 06/25/2019 11:33 AM Height: 74 in Weight: 290 lb BSA: 2.5 m2 Procedure: A complete two-dimensional transthoracic echocardiogram was performed (2D, M-mode, spectral and color flow Doppler). The study was technically adequate with some images being suboptimal in quality. Reason For Study: New Onset CHF Previous Evaluation: No previous studies were available. History: Shortness of breath. Smoker: current. Ordering Physician: DON MULTANI Performed By: Olena Diaz Interpretation Summary The left ventricle is mildly dilated. Left ventricular systolic function is severely reduced. LV systolic function is less than 25%. LV diastolic function could not be adequately assessed . Severe global hypokinesis which is more pronounced in the anterior wall. There is no thrombus. Moderate LAE. Trace to mild MR, trace TR, trace PI. Mildly dilated IVC with <50% decrease with respiratory variation. No prior studies for comparison. MMode/2D Measurements & Calculations RVDd: 3.6 cm LVIDd: 5.7 cm FS: 13.1 % Ao root diam: IVSd: 1.1 cm LVIDs: 5.0 cm EDV(Teich): 3.4 cm LVPWd: 1.1 cm 160.7 ml Ao root area: ESV(Teich): 9.0 cm2 116.2 ml LA dimension: EF(Teich): 27.7 % 5.2 cm LVLd ap4: 8.9 cm SV(MOD-sp4): 36.0 ml EDV(MOD-sp4): 156.0 ml LVLs ap4: 8.5 cm ESV(MOD-sp4): 120.0 ml EF(MOD-sp4): 23.1 % Doppler Measurements & Calculations MV E max zechariah: MV P1/2t max zechariah: Ao V2 max: LV V1 max P.1 cm/sec 119.1 cm/sec 99.9 cm/sec 3.2 mmHg MV A max zechariah: MV P1/2t: 33.2 msec Ao max PG: LV V1 max: 58.0 cm/sec MVA(P1/2t): 6.6 cm2 4.0 mmHg 89.6 cm/sec MV E/A: 2.1 MV dec slope: 1049 cm/sec2 MV dec time: 0.10 sec PA V2 max: PI end-d zechariah: TR max zechariah: MV P1/2t-pr_phl: 71.3 cm/sec 248.2 cm/sec 249.2 cm/sec 33.2 msec PA max P.0 mmHg TR max P.8 mmHg Left Ventricle The left ventricle is mildly dilated. Left ventricular systolic function is severely reduced. LV systolic function is less than 25%. LV diastolic function could not be adequately assessed. Severe global hypokinesis which is more pronounced in the anterior wall. There is no thrombus. Right Ventricle The right ventricle is normal in size, thickness and function. The right ventricular systolic function is normal. Atria The right atrium is normal. The left atrium is moderately dilated. Interarterial septum not well visualized and not well dopplered. Cannot comment on ASD/PFO presence. Mitral Valve The mitral valve is grossly normal. There is no mitral valve stenosis. There is a trace to mild amount of mitral regurgitation. Aortic Valve The aortic valve is normal in structure and functions normally. There is no aortic valvular vegetation. There is no aortic valve stenosis. No aortic regurgitation is present. Tricuspid Valve The tricuspid valve is not well visualized, but is grossly normal. There is a trace or physiologic amount of tricuspid regurgitation. Pulmonic Valve The pulmonic valve is not well visualized. There is a trace or physiologic amount of pulmonic regurgitation. Great Vessels The inferior vena cava appeared dilated and decreased < 50% with respiration (RAP 15-20 mmHg). : DON MULTANI Antonio
[2019-06-26] MEDS: NITROGLYCERIN 2% OINTMENT 1 GM PACKET TP SCH ×2 (00:20→05:40)
--- NOTE | 2019-06-26 09:11 | PDOC PROGRESS REPORT ---
Subjective Progress Note for:: 06/26/19 Subjective:: LUIS ROCHA is a 39 year old male with history of hypertension, hypoglycemia, tobacco use of 1/2 pack/day for 12 years and family history of premature coronary artery disease and heart failure in his mother who is consulted to our service for evaluation of chest pain. The patient states that he had been treated for bronchitis since November 2018 without any improvement. 2 days prior to admission he began with chest pain that he describes as a dull ache with episodes of sharp pain, lasting anywhere from several minutes to 2 hours, associated with shortness of breath, with radiation to the left arm particularly the joints of the elbow, shoulder and wrist. He denied associated dizziness, lightheadedness, palpitations, syncope, presyncope or lower extremity edema. He came to the emergency room yesterday and was found to have a blood pressure of 160/127 with indeterminate troponins and elevated proBNP. The patient is currently examined in his room and he is laying comfortably in his bed without any cardiac complaints. 06/26/2019: The patient continues to feel well this morning and denies recurrence of chest pain as well as shortness of breath. Unfortunately his echocardiogram on 06/25/2019 demonstrated a low ejection fraction among other findings. His blood pressure continues to be above goal. Physical exam on 06/25/2019: GENERAL: Pleasant and conversational. Oriented x3 with normal mood. Not in acute distress. Well groomed and well developed. HEENT: Normocephalic, atraumatic. Pupils equal. Sclerae anicteric. Oropharynx moist. NECK: No JVD. No carotid bruits. LUNGS: Clear to auscultation bilaterally. Normal respiratory effort without the use of accessory muscles or intercostal retractions. CARDIOVASCULAR: Regular rate and rhythm, normal S1 and S2 without murmurs, rubs, or gallops. PMI not displaced. ABDOMEN: No masses or tenderness to palpation. No bruit. No splenomegaly or hepatomegaly. No abdominal aorta bruit noted. EXTREMITIES: No edema, no cyanosis, no clubbing. +2 pulses femoral and pedal pulses bilaterally. SKIN: No lesions or rashes. MUSCULOSKELETAL: No chest tenderness to palpation. NEUROLOGIC: Nonfocal. No gross sensory or motor deficits bilateral upper or lower extremities. Cardiac studies: Echocardiogram on 06/25/2019: -Mild LVE. -Systolic function is severely reduced. -EF less than 25%. -Diastolic function cannot be assessed. -Severe global hypokinesis which is more pronounced in the anterior wall. -Moderate LAE. -Trace to mild MR, trace TR, trace PI. -Mildly dilated IVC with less than 50% collapse with respiratory variation. Reason For Visit: [facility] [place] CHF, HYPERTENSIVE EMERGENCY Physical Exam Vital Signs: Temp Pulse Resp BP Pulse Ox 97.9 F 87 16 137/76 H 100 06/25/19 23:17 06/26/19 05:57 06/25/19 23:17 06/26/19 05:57 06/25/19 23:17 Intake & Output 06/24/19 06/25/19 06/26/19 06:59 06:59 06:59 Intake Total 700 1220 Balance 700 1220 Weight 131.8 kg 131 kg Results Laboratory Results: 06/25/19 05:09 06/24/19 15:51 06/25/19 05:04 Triglycerides 121 Cholesterol 156.91 LDL Cholesterol Direct 127 H VLDL Cholesterol 24.2 HDL Cholesterol 27 L 06/24/19 06/24/19 06/24/19 15:51 15:51 22:31 Troponin I 0.056 0.065 NT-Pro-B Natriuret Pep 2060 H 06/25/19 06/25/19 05:04 16:18 Troponin I 0.070 0.040 NT-Pro-B Natriuret Pep Impressions: Chest X-Ray 06/24/19 15:00 IMPRESSION: Borderline cardiomegaly without a superimposed acute cardiopulmonary process. 06/25/19 05:09 06/24/19 15:51 MCV 88 fl (80-97) 06/25/19 05:09 MCH 30.4 pg (27.0-33.4) 06/25/19 05:09 MCHC 34.5 g/dL (32.0-36.0) 06/25/19 05:09 RDW 14.4 % (11.5-14.0) H 06/25/19 05:09 Seg Neutrophils % 69.1 % (42-78) 06/24/19 15:51 Chloride 104 mmol/L (98-107) 06/24/19 15:51 Carbon Dioxide 27 mmol/L (22-30) 06/24/19 15:51 Anion Gap 7 (5-19) 06/24/19 15:51 Est GFR ( Amer) > 60 (>60) 06/24/19 15:51 Glucose 216 mg/dL (75-110) H 06/24/19 15:51 Calcium 8.7 mg/dL (8.4-10.2) 06/24/19 15:51 Triglycerides 121 mg/dL (<150) 06/25/19 05:04 Cholesterol 156.91 mg/dL (0-200) 06/25/19 05:04 LDL Cholesterol Direct 127 mg/dL (<100) H 06/25/19 05:04 VLDL Cholesterol 24.2 mg/dL (10-31) 06/25/19 05:04 HDL Cholesterol 27 mg/dL (>40) L 06/25/19 05:04 TSH 2.07 uIU/mL (0.47-4.68) 06/24/19 15:51 06/24/19 06/24/19 06/24/19 15:51 15:51 22:31 Troponin I 0.056 0.065 NT-Pro-B Natriuret Pep 0 H 06/25/19 06/25/19 05:04 16:18 Troponin I 0.070 0.040 NT-Pro-B Natriuret Pep Current Medication List Generic Name Dose Route Start Last Admin Trade Name Freq PRN Reason Stop Dose Admin Acetaminophen 650 mg 06/24/19 17:20 06/25/19 17:58 Tylenol 325 Mg Tablet PO 07/24/19 17:19 650 mg Q4HP PRN Administration FOR PAIN SCALE 1-2 Albuterol/Ipratropium 3 ml 06/24/19 17:20 Duoneb 3 Ml Ampul NEB 07/24/19 17:19 [id number] PRN SHORTNESS OF BREATH Aspirin 81 mg 06/25/19 10:00 06/25/19 09:13 Aspirin 81 Mg Chewable Tablet PO 07/25/19 09:59 81 mg DAILY [facility] Administration Carvedilol 6.25 mg 06/25/19 17:15 06/25/19 21:34 Coreg 6.25 Mg Tablet PO 07/25/19 17:14 6.25 mg Q12 [facility]A Administration Docusate Sodium 100 mg 06/25/19 10:00 06/25/19 09:30 Colace 100 Mg Capsule PO 07/25/19 09:59 Not Given DAILY [facility] Enoxaparin Sodium 130 mg 06/26/19 10:00 Lovenox Inj 150 Mg/1 Ml Disp.Syrin SUBCUT 07/26/19 09:59 DAILY [facility] Furosemide 40 mg 06/26/19 10:00 Lasix Inj/Pf 40 Mg/4 Ml Sdv IV 07/26/19 09:59 DAILY [facility] Hydralazine HCl 10 mg 06/24/19 17:28 06/25/19 15:50 Apresoline Inj/Pf 20 Mg/1 Ml Sdv IV 07/24/19 17:27 10 mg Q4HP PRN Administration Give For Sbp >180 / Dbp > 110 Nitroglycerin 1 gm 06/24/19 18:00 06/26/19 05:40 Nitrol 2% Ointment 1gm Packet TP 07/24/19 17:59 1 gm Q6 [facility] Administration Nitroglycerin 1 tab 06/24/19 17:26 Nitrostat 0.4 Mg (1/150 Gr) Tabs 25/Bottle SL 07/24/19 17:25 Q5MP PRN FOR CHEST PAIN Ondansetron HCl 4 mg 06/24/19 17:20 Zofran Odt 4 Mg Tablet PO 07/24/19 17:19 Q6HP PRN FOR NAUSEA/VOMITING Oxycodone/Acetaminophen 1 tab 06/24/19 17:20 06/24/19 23:18 Percocet 5-325 Mg Tablet PO 07/01/19 17:19 1 tab Q6HP PRN Administration FOR PAIN SCALE 3-4 Valsartan 80 mg 06/26/19 10:00 Diovan 80 Mg Tablet PO 07/26/19 09:59 DAILY [facility] Zolpidem Tartrate 5 mg 06/24/19 17:20 Ambien 5 Mg Tablet PO 07/01/19 17:19 HSP PRN SLEEP OR INSOMNIA Discontinued Medications Generic Name Dose Route Start Last Admin Trade Name Freq PRN Reason Stop Dose Admin Amlodipine Besylate 5 mg 06/24/19 19:00 06/25/19 09:13 Norvasc 5 Mg Tablet PO 07/24/19 18:59 5 mg DAILY [facility] Administration Enoxaparin Sodium 40 mg 06/24/19 18:30 06/25/19 09:12 Lovenox Inj 40 Mg/0.4 Ml Disp.Syrin SUBCUT 07/24/19 18:29 40 mg DAILY [facility] Administration Enoxaparin Sodium 130 mg 06/26/19 10:00 Lovenox Inj 40 Mg/0.4 Ml Disp.Syrin SUBCUT 07/26/19 09:59 DAILY [facility] Enoxaparin Sodium 90 mg 06/25/19 11:16 06/25/19 13:48 Lovenox Inj 40 Mg/0.4 Ml Disp.Syrin SUBCUT 06/25/19 11:17 Not Given NOW ONE Enoxaparin Sodium 90 mg 06/25/19 12:15 06/25/19 13:44 Lovenox Inj 100 Mg/1 Ml Disp.Syrin SUBCUT 06/25/19 12:16 90 mg NOW ONE Administration Furosemide 40 mg 06/24/19 22:00 06/25/19 09:10 Lasix Inj/Pf 40 Mg/4 Ml Sdv IV 07/24/19 21:59 40 mg Q12 [facility] Administration Lisinopril 20 mg 06/26/19 10:00 Prinivil 10 Mg Tablet PO 07/26/19 09:59 DAILY [facility] Lisinopril 20 mg 06/25/19 17:06 06/25/19 17:21 Prinivil 10 Mg Tablet PO 06/25/19 17:07 20 mg NOW ONE Administration Metoprolol Tartrate 25 mg 06/25/19 10:00 06/25/19 09:13 Lopressor 25 Mg Tablet PO 07/25/19 09:59 25 mg DAILY [facility] Administration Assessment & Plan - Diagnosis (1) Chest pain Qualifiers: Ischemic chest pain type: unspecified angina pectoris type Is this a current diagnosis for this admission?: Yes Plan: 39-year-old male with cardiac risk factors of gender, sedentary lifestyle, hypertension and smoking who was admitted to our facility yesterday for a 2-day history of intermittent chest pain. His cardiac troponins have been indeterminate and now trending down. Given the new finding of severe systolic dysfunction, his history of chest pain and indeterminate troponins we will forego stress test and we will schedule the patient for an outpatient left heart catheterization once he is stable to be discharged. Recommendations: -Continue with cardiac telemetry. -No need for full anticoagulation at this point. -Discontinue nitroglycerin paste. -Continue with current medical management. -We will continue to follow with you. (2) CHF (congestive heart failure) Qualifiers: Heart failure type: systolic Heart failure chronicity: acute Qualified Code(s): I50.21 - Acute systolic (congestive) heart failure Is this a current diagnosis for this admission?: Yes Plan: The patient is currently euvolemic by physical exam and no evidence of fluid overload on chest x-ray. He remains asymptomatic. Unfortunately he does have severe systolic dysfunction with an ejection fraction of less than 25%. We had a very long discussion this morning and explained to the patient the possible etiologies for this new finding. He was instructed about the importance of low- sodium diet and daily weights. His medical regimen needs to be optimized before discharge particularly his hypertension. Recommendations: -Ischemic work-up as delineated above. -Low-sodium diet. -Strict intake and output. -Continue with carvedilol 6.25 mg daily and lisinopril 20 mg daily. -Start valsartan 80 mg daily with plan to transition him to Entresto in the next several days. -The patient will need a LifeVest prior to discharge. -Transition IV Lasix to p.o. Lasix. -Daily BMPs. (3) Hypertensive emergency Is this a current diagnosis for this admission?: Yes Plan: His blood pressure is very close to his goal of 130/80 or below. Recommendations: -Continue with current medical management. -Low-sodium diet.
[2019-06-26] MEDS ORDERED: ENOXAPARIN SODIUM INJ 150 MG/1 ML DISP.SYRIN SUBCUT SCH (10:00)
[2019-06-26] MEDS ORDERED: ENOXAPARIN SODIUM INJ 40 MG/0.4 ML DISP.SYRIN SUBCUT SCH (10:00)
[2019-06-26] MEDS ORDERED: FUROSEMIDE INJ/PF 40 MG/4 ML SDV IV SCH (10:00)
[2019-06-26] MEDS ORDERED: LISINOPRIL 10 MG TABLET PO SCH (10:00)
[2019-06-26] MEDS: ASPIRIN 81 MG TABLET, CHEWABLE PO SCH (10:56)
[2019-06-26] MEDS: CARVEDILOL 6.25 MG TABLET PO SCH ×2 (10:56→23:00)
[2019-06-26] MEDS: VALSARTAN 80 MG TABLET PO SCH (10:57)
[2019-06-26 11:05] LABS: ANION GAP 9 (5-19); BLOOD UREA NITROGEN 17 mg/dL (7-20); CALCIUM 8.8 mg/dL (8.4-10.2); CARBON DIOXIDE 23 mmol/L (22-30); CHLORIDE 103 mmol/L (98-107); GLUCOSE 249 mg/dL (75-110); POTASSIUM 4.2 mmol/L (3.6-5.0)
[2019-06-26] MEDS: DOCUSATE SODIUM 100 MG CAPSULE PO SCH (11:09)
--- NOTE | 2019-06-26 11:52 | PDOC PROGRESS REPORT ---
Subjective Progress Note for:: 06/26/19 Subjective:: Patient seen in his room laying down. He is understandably upset about the news about his heart function. Reason For Visit: NEW [place] CHF, HYPERTENSIVE EMERGENCY Physical Exam Vital Signs: Temp Pulse Resp BP Pulse Ox 97.4 F 90 18 137/92 H 98 06/26/19 10:52 06/26/19 10:52 06/26/19 10:52 06/26/19 10:52 06/26/19 10:52 Intake & Output 06/25/19 06/26/19 06/27/19 06:59 06:59 06:59 Intake Total 700 1420 Balance 700 1420 Weight 131.8 kg 131 kg General appearance: PRESENT: no acute distress, well-nourished Head exam: PRESENT: atraumatic, normocephalic Eye exam: PRESENT: conjunctiva pink, EOMI. ABSENT: scleral icterus Ear exam: PRESENT: normal external ear exam Mouth exam: PRESENT: moist, tongue midline Neck exam: ABSENT: carotid bruit, JVD, lymphadenopathy, thyromegaly Respiratory exam: PRESENT: clear to auscultation gio, unlabored. ABSENT: rales, rhonchi, wheezes Cardiovascular exam: PRESENT: RRR, +S1, +S2. ABSENT: diastolic murmur, rubs, systolic murmur Vascular exam: PRESENT: normal capillary refill GI/Abdominal exam: PRESENT: normal bowel sounds, soft. ABSENT: distended, guarding, mass, organolmegaly, rebound, tenderness Rectal exam: PRESENT: deferred Extremities exam: PRESENT: full ROM. ABSENT: calf tenderness, clubbing, pedal edema Neurological exam: PRESENT: alert, awake, oriented to person, oriented to place, oriented to time, oriented to situation, CN II-XII grossly intact. ABSENT: motor sensory deficit Psychiatric exam: PRESENT: appropriate affect, normal mood. ABSENT: homicidal ideation, suicidal ideation Skin exam: PRESENT: dry, intact, warm. ABSENT: cyanosis, rash Results Laboratory Results: 06/25/19 05:09 06/26/19 10:09 06/26/19 10:09 Sodium 134.9 L Potassium 4.2 Chloride 103 Carbon Dioxide 23 Anion Gap 9 BUN 17 Creatinine 0.92 Est GFR ( Amer) > 60 Glucose 249 H Calcium 8.8 06/24/19 06/24/1906/23/20 15:51 15:51 22:31 Troponin I 0.056 0.065 NT-Pro-B Natriuret Pep 2059 H 06/25/19 06/25/19 05:04 16:18 Troponin I 0.070 0.040 NT-Pro-B Natriuret Pep Impressions: Chest X-Ray 06/24/19 15:00 IMPRESSION: Borderline cardiomegaly without a superimposed acute cardiopulmonary process. Assessment and Plan - Diagnosis (1) CHF (congestive heart failure) Qualifiers: Heart failure type: systolic Heart failure chronicity: acute Qualified Code(s): I50.21 - Acute systolic (congestive) heart failure Is this a current diagnosis for this admission?: Yes Plan: Echocardiogram revealed an ejection fraction of less than 25% with severe global hypokinesis more pronounced in the anterior wall. Plan is for him to be fitted with a LifeVest prior to discharge unable need further work-up including cardiac cath as outpatient. His blood pressure is better controlled today (2) Hypertensive emergency Is this a current diagnosis for this admission?: Yes Plan: Continue to adjust antihypertensive for optimal blood pressure control (3) Chest pain at rest Is this a current diagnosis for this admission?: Yes Plan: Resolved (4) Angina at rest Is this a current diagnosis for this admission?: Yes Plan: Nitroglycerin discontinued as per cardiology consultation - Plan Summary Summary: Lasix has been changed to p.o. and he has been started on valsartan. Ultimate goal is to place him on Entresto as per cardiology.
--- NOTE | 2019-06-27 08:12 | PDOC PROGRESS REPORT ---
Subjective Progress Note for:: 06/27/19 Subjective:: LUIS ROCHA is a 39 year old male with history of hypertension, hypoglycemia, tobacco use of 1/2 pack/day for 12 years and family history of premature coronary artery disease and heart failure in his mother who is consulted to our service for evaluation of chest pain. The patient states that he had been treated for bronchitis since November 2018 without any improvement. 2 days prior to admission he began with chest pain that he describes as a dull ache with episodes of sharp pain, lasting anywhere from several minutes to 2 hours, associated with shortness of breath, with radiation to the left arm particularly the joints of the elbow, shoulder and wrist. He denied associated dizziness, lightheadedness, palpitations, syncope, presyncope or lower extremity edema. He came to the emergency room yesterday and was found to have a blood pressure of 160/127 with indeterminate troponins and elevated proBNP. The patient is currently examined in his room and he is laying comfortably in his bed without any cardiac complaints. 06/27/2019: The patient continues to feel well this morning and denies recurrence of chest pain as well as shortness of breath. Unfortunately his echocardiogram on 06/25/2019 demonstrated a low ejection fraction among other findings. His blood pressure is very close to his goal. His telemetry demonstrated sinus rhythm with occasional sinus tachycardia and 1 6-beat episode of nonsustained VT. He is pending LifeVest placement. Physical exam on 06/27/2019: GENERAL: Pleasant and conversational. Oriented x3 with normal mood. Not in acute distress. Well groomed and well developed. HEENT: Normocephalic, atraumatic. Pupils equal. Sclerae anicteric. Oropharynx moist. NECK: No JVD. No carotid bruits. LUNGS: Clear to auscultation bilaterally. Normal respiratory effort without the use of accessory muscles or intercostal retractions. CARDIOVASCULAR: Regular rate and rhythm, normal S1 and S2 without murmurs, rubs, or gallops. PMI not displaced. ABDOMEN: No masses or tenderness to palpation. No bruit. No splenomegaly or hepatomegaly. No abdominal aorta bruit noted. EXTREMITIES: No edema, no cyanosis, no clubbing. +2 pulses femoral and pedal pulses bilaterally. SKIN: No lesions or rashes. MUSCULOSKELETAL: No chest tenderness to palpation. NEUROLOGIC: Nonfocal. No gross sensory or motor deficits bilateral upper or lower extremities. Cardiac studies: Echocardiogram on 06/25/2019: -Mild LVE. -Systolic function is severely reduced. -EF less than 25%. -Diastolic function cannot be assessed. -Severe global hypokinesis which is more pronounced in the anterior wall. -Moderate LAE. -Trace to mild MR, trace TR, trace PI. -Mildly dilated IVC with less than 50% collapse with respiratory variation. Reason For Visit: NEW [place] CHF, HYPERTENSIVE EMERGENCY Physical Exam Vital Signs: Temp Pulse Resp BP Pulse Ox 98.5 F 86 17 133/93 H 98 06/27/19 04:49 06/27/19 04:49 06/27/19 04:49 06/27/19 04:49 06/27/19 04:49 Intake & Output 06/25/19 06/26/19 06/27/19 06:59 06:59 06:59 Intake Total 700 1420 1225 Output Total 750 Balance 700 1420 475 Weight 131.8 kg 131 kg Results Laboratory Results: 06/25/19 05:09 06/26/19 10:09 06/26/19 10:09 Sodium 134.9 L Potassium 4.2 Chloride 103 Carbon Dioxide 23 Anion Gap 9 BUN 17 Creatinine 0.92 Est GFR ( Amer) > 60 Glucose 249 H Calcium 8.8 06/24/19 06/24/19 06/24/19 15:51 15:51 22:31 Troponin I 0.056 0.065 NT-Pro-B Natriuret Pep 2060 H 06/25/19 06/25/19 05:04 16:18 Troponin I 0.070 0.040 NT-Pro-B Natriuret Pep Impressions: Chest X-Ray 06/24/19 15:00 IMPRESSION: Borderline cardiomegaly without a superimposed acute cardiopulmonary process. 06/25/19 05:09 06/26/19 10:09 MCV 88 fl (80-97) 06/25/19 05:09 MCH 30.4 pg (27.0-33.4) 06/25/19 05:09 MCHC 34.5 g/dL (32.0-36.0) 06/25/19 05:09 RDW 14.4 % (11.5-14.0) H 06/25/19 05:09 Seg Neutrophils % 69.1 % (42-78) 06/24/19 15:51 Chloride 103 mmol/L (98-107) 06/26/19 10:09 Carbon Dioxide 23 mmol/L (22-30) 06/26/19 10:09 Anion Gap 9 (5-19) 06/26/19 10:09 Est GFR ( Amer) > 60 (>60) 06/26/19 10:09 Glucose 249 mg/dL (75-110) H 06/26/19 10:09 Calcium 8.8 mg/dL (8.4-10.2) 06/26/19 10:09 Triglycerides 121 mg/dL (<150) 06/25/19 05:04 Cholesterol 156.91 mg/dL (0-200) 06/25/19 05:04 LDL Cholesterol Direct 127 mg/dL (<100) H 06/25/19 05:04 VLDL Cholesterol 24.2 mg/dL (10-31) 06/25/19 05:04 HDL Cholesterol 27 mg/dL (>40) L 06/25/19 05:04 TSH 2.07 uIU/mL (0.47-4.68) 06/24/19 15:51 06/24/19 06/24/19 06/24/19 15:51 15:51 22:31 Troponin I 0.056 0.065 NT-Pro-B Natriuret Pep 2060 H 06/25/19 06/25/19 05:04 16:18 Troponin I 0.070 0.040 NT-Pro-B Natriuret Pep Current Medication List Generic Name Dose Route Start Last Admin Trade Name Freq PRN Reason Stop Dose Admin Acetaminophen 650 mg 06/24/19 17:20 06/25/19 17:58 Tylenol 325 Mg Tablet PO 07/24/19 17:19 650 mg Q4HP PRN Administration FOR PAIN SCALE 1-2 Albuterol/Ipratropium 3 ml 06/24/19 17:20 Duoneb 3 Ml Ampul NEB 07/24/19 17:19 RTQ6HP PRN SHORTNESS OF BREATH Aspirin 81 mg 06/25/19 10:00 06/26/19 10:56 Aspirin 81 Mg Chewable Tablet PO 07/25/19 09:59 81 mg DAILY [facility] Administration Carvedilol 6.25 mg 06/25/19 17:15 06/26/19 23:00 Coreg 6.25 Mg Tablet PO 07/25/19 17:14 6.25 mg Q12 [facility]A Administration Docusate Sodium 100 mg 06/25/19 10:00 06/26/19 11:09 Colace 100 Mg Capsule PO 07/25/19 09:59 Not Given DAILY [facility] Furosemide 40 mg 06/27/19 10:00 Lasix 40 Mg Tablet PO 07/27/19 09:59 DAILY [facility] Hydralazine HCl 10 mg 06/24/19 17:28 06/25/19 15:50 Apresoline Inj/Pf 20 Mg/1 Ml Sdv IV 07/24/19 17:27 10 mg Q4HP PRN Administration Give For Sbp >180 / Dbp > 110 Nitroglycerin 1 tab 06/24/19 17:26 Nitrostat 0.4 Mg (1/150 Gr) Tabs 25/Bottle SL 07/24/19 17:25 Q5MP PRN FOR CHEST PAIN Ondansetron HCl 4 mg 06/24/19 17:20 Zofran Odt 4 Mg Tablet PO 07/24/19 17:19 Q6HP PRN FOR NAUSEA/VOMITING Oxycodone/Acetaminophen 1 tab 06/24/19 17:20 06/24/19 23:18 Percocet 5-325 Mg Tablet PO 07/01/19 17:19 1 tab Q6HP PRN Administration FOR PAIN SCALE 3-4 Valsartan 80 mg 06/26/19 10:00 06/26/19 10:57 Diovan 80 Mg Tablet PO 07/26/19 09:59 80 mg DAILY [facility] Administration Zolpidem Tartrate 5 mg 06/24/19 17:20 Ambien 5 Mg Tablet PO 07/01/19 17:19 HSP PRN SLEEP OR INSOMNIA Discontinued Medications Generic Name Dose Route Start Last Admin Trade Name Freq PRN Reason Stop Dose Admin Amlodipine Besylate 5 mg 06/24/19 19:00 06/25/19 09:13 Norvasc 5 Mg Tablet PO 07/24/19 18:59 5 mg DAILY [facility] Administration Enoxaparin Sodium 40 mg 06/24/19 18:30 06/25/19 09:12 Lovenox Inj 40 Mg/0.4 Ml Disp.Syrin SUBCUT 07/24/19 18:29 40 mg DAILY [facility] Administration Enoxaparin Sodium 130 mg 06/26/19 10:00 Lovenox Inj 40 Mg/0.4 Ml Disp.Syrin SUBCUT 07/26/19 09:59 DAILY [facility] Enoxaparin Sodium 90 mg 06/25/19 11:16 06/25/19 13:48 Lovenox Inj 40 Mg/0.4 Ml Disp.Syrin SUBCUT 06/25/19 11:17 Not Given NOW ONE Enoxaparin Sodium 90 mg 06/25/19 12:15 06/25/19 13:44 Lovenox Inj 100 Mg/1 Ml Disp.Syrin SUBCUT 06/25/19 12:16 90 mg NOW ONE Administration Enoxaparin Sodium 130 mg 06/26/19 10:00 06/26/19 10:57 Lovenox Inj 150 Mg/1 Ml Disp.Syrin SUBCUT 07/26/19 09:59 130 mg DAILY [facility] Administration Furosemide 40 mg 06/24/19 22:00 06/25/19 09:10 Lasix Inj/Pf 40 Mg/4 Ml Sdv IV 07/24/19 21:59 40 mg Q12 [facility] Administration Furosemide 40 mg 06/26/19 10:00 06/26/19 10:57 Lasix Inj/Pf 40 Mg/4 Ml Sdv IV 07/26/19 09:59 40 mg DAILY [facility] Administration Lisinopril 20 mg 06/26/19 10:00 Prinivil 10 Mg Tablet PO 07/26/19 09:59 DAILY [facility] Lisinopril 20 mg 06/25/19 17:06 06/25/19 17:21 Prinivil 10 Mg Tablet PO 06/25/19 17:07 20 mg NOW ONE Administration Metoprolol Tartrate 25 mg 06/25/19 10:00 06/25/19 09:13 Lopressor 25 Mg Tablet PO 07/25/19 09:59 25 mg DAILY [facility] Administration Nitroglycerin 1 gm 06/24/19 18:00 06/26/19 05:40 Nitrol 2% Ointment 1gm Packet TP 07/24/19 17:59 1 gm Q6 [facility] Administration Assessment & Plan - Diagnosis (1) Chest pain Qualifiers: Ischemic chest pain type: unspecified angina pectoris type Is this a current diagnosis for this admission?: Yes Plan: 39-year-old male with cardiac risk factors of gender, sedentary lifestyle, hypertension and smoking who was admitted to our facility for a 2-day history of intermittent chest pain. His cardiac troponins have been indeterminate and now trending down. Given the new finding of severe systolic dysfunction, his history of chest pain and indeterminate troponins we will forego stress test and we will schedule the patient for an outpatient left heart catheterization once he is stable to be discharged. He has remained chest pain-free since admission. The patient may be discharged home from the cardiovascular standpoint once he gets his life vest. Recommendations: -Continue with cardiac telemetry. -Continue with current medical management. -LifeVest prior to discharging home. -Once the patient is fitted with his LifeVest, he should go home with sublingual nitroglycerin. I discussed with him this morning how to use the medication and to call 911 if chest pain recurs. -He is to avoid strenuous physical activities until reevaluated by cardiology in the outpatient setting. (2) CHF (congestive heart failure) Qualifiers: Heart failure type: systolic Heart failure chronicity: acute Qualified Code(s): I50.21 - Acute systolic (congestive) heart failure Is this a current diagnosis for this admission?: Yes Plan: The patient is currently euvolemic by physical exam and no evidence of fluid overload on chest x-ray. He remains asymptomatic. Unfortunately he does have severe systolic dysfunction with an ejection fraction of less than 25%. A LifeVest has been ordered however has not been delivered yet. He continues to be hemodynamically stable. We discussed again this morning the importance of low-sodium diet, less than 1500 mg of sodium daily as well as daily weights. The patient may be discharged home once he gets his LifeVest. Recommendations: -Ischemic work-up with left heart catheterization in the outpatient setting. -The patient may be discharged home once he gets his LifeVest. Please do not discharge the patient without the LifeVest. -Strict intake and output. -Increase carvedilol to 12.5 mg twice daily. -Continue with valsartan 80 mg daily with plan to transition him to Entresto in the outpatient setting. -Daily BMPs while hospitalized. -Follow-up with Dr. Wray with [facility] within 1 week of discharge. I will arrange for that follow-up. (3) Hypertensive emergency Is this a current diagnosis for this admission?: Yes Plan: His blood pressure is very close to his goal of 130/80 or below. Recommendations: -Increase carvedilol to 12.5 mg twice daily. -Low-sodium diet.
[2019-06-27] MEDS: VALSARTAN 80 MG TABLET PO SCH (09:17)
[2019-06-27] MEDS: CARVEDILOL 6.25 MG TABLET PO SCH (09:17)
[2019-06-27] MEDS: ASPIRIN 81 MG TABLET, CHEWABLE PO SCH (09:17)
[2019-06-27] MEDS: DOCUSATE SODIUM 100 MG CAPSULE PO SCH (09:20)
[2019-06-27] MEDS ORDERED: FUROSEMIDE 40 MG TABLET PO SCH (10:00)
--- NOTE | 2019-06-27 11:21 | PDOC DISCHARGE SUMMARY ---
Impression - Admit/DC Date/PCP Admission Date/Primary Care Provider: 06/24/19 17:19 Discharge Date: 06/27/19 - Discharge Diagnosis (1) CHF (congestive heart failure) Is this a current diagnosis for this admission?: Yes (2) Hypertensive emergency Is this a current diagnosis for this admission?: Yes (3) Chest pain at rest Is this a current diagnosis for this admission?: Yes (4) Angina at rest Is this a current diagnosis for this admission?: Yes (5) Cardiomyopathy Is this a current diagnosis for this admission?: Yes - Additional Information Resuscitation Status: Full Code Discharge Diet: Cardiac Discharge Activity: Activity As Tolerated, Balance Activity w/Rest, Weigh Daily Referrals: SIVA DOLAN MD [ACTIVE [employer]ISIONAL [employer]AFF] - (Cardiomyopathy, Hypertensive emergency) Prescriptions: Nitroglycerin [Nitrostat 0.4 mg (1/150 Gr) Tabs 25/Bottle] 1 tab SL Q5MP PRN #1 bottle PRN Reason: For Chest Pain Carvedilol [Coreg 12.5 mg Tablet] 12.5 mg PO Q12 #60 tablet Valsartan [Diovan 80 mg Tablet] 80 mg PO DAILY #30 tablet Furosemide [Lasix 40 mg Tablet] 40 mg PO DAILY #30 tablet Home Medications: Aspirin [Aspirin 81 mg Chewable Tablet] 81 mg PO DAILY tab.chew 06/27/19 Carvedilol [Coreg 12.5 mg Tablet] 12.5 mg PO Q12 #60 tablet 06/27/19 Furosemide [Lasix 40 mg Tablet] 40 mg PO DAILY #30 tablet 06/27/19 Nitroglycerin [Nitrostat 0.4 mg (1/150 Gr) Tabs 25/Bottle] 1 tab SL Q5MP PRN #1 bottle 06/27/19 Valsartan [Diovan 80 mg Tablet] 80 mg PO DAILY #30 tablet 06/27/19 History of Present Illiness History of Present Illness: LUIS ROCHA is a 39 year old male Patient presents to the emergency room with complaints of difficulty breathing and shortness of breath. He also complains of chest pain with radiation to his left shoulder. He says he has had a cough intermittently since November. This is associated with a whitish sputum. He does complain of difficulty ambulating as this is associated with shortness of breath. He denies any leg swelling. In the emergency room patient was found to have a pretty elevated blood pressure with systolic of more than 120. He claims to be compliant with his medications and said he did not use it only today. He admits to not seen a PCP for a while. He denies any orthopnea dizziness. He denies any prior history of coronary artery disease. His chest x-ray shows cardiomegaly Hospital Course Hospital Course: Patient was admitted to the telemetry floor and he was started on antihypertensives. His blood pressure improved although still suboptimal. He had serial cardiac enzymes done which were sort of indeterminate but flat. Cardiology consultation was obtained. Echocardiogram done revealed ejection fraction of less than 25% with severe global hypokinesis more pronounced in the anterior wall. Patient was seen by cardiology on consultation. He had a life vest placed prior to discharge. He is medications were adjusted to control his blood pressure and it was still need optimal blood pressure control as out patient. Patient was given CHF education as well as education on LifeVest. He has been reinforced that he needs to be compliant with his medications as well as his medical instructions Patient cardiomyopathy likely secondary to poorly controlled hypertension however he will need further cardiac work-up as outpatient including cardiac cath to further evaluate and risk stratify Physical Exam Vital Signs: Temp Pulse Resp BP Pulse Ox 97.7 F 88 17 130/94 H 98 06/27/19 07:30 06/27/19 07:30 06/27/19 07:30 06/27/19 07:30 06/27/19 07:30 Intake & Output 06/26/19 06/27/19 06/28/19 06:59 06:59 06:59 Intake Total 1420 1450 Output Total 750 Balance 1420 700 Weight 131 kg 129.3 kg General appearance: PRESENT: no acute distress, well-developed, well-nourished Head exam: PRESENT: atraumatic, normocephalic Eye exam: PRESENT: conjunctiva pink, EOMI, PERRLA. ABSENT: scleral icterus Ear exam: PRESENT: normal external ear exam Mouth exam: PRESENT: moist, tongue midline Neck exam: ABSENT: carotid bruit, JVD, lymphadenopathy, thyromegaly Respiratory exam: PRESENT: clear to auscultation gio. ABSENT: rales, rhonchi, wheezes Cardiovascular exam: PRESENT: RRR, +S1, +S2. ABSENT: diastolic murmur, rubs, systolic murmur Pulses: PRESENT: normal dorsalis pedis pul Vascular exam: PRESENT: normal capillary refill GI/Abdominal exam: PRESENT: normal bowel sounds, soft. ABSENT: distended, guarding, mass, organolmegaly, rebound, tenderness Rectal exam: PRESENT: deferred Extremities exam: PRESENT: full ROM. ABSENT: calf tenderness, clubbing, pedal edema Neurological exam: PRESENT: alert, awake, oriented to person, oriented to place, oriented to time, oriented to situation, CN II-XII grossly intact. ABSENT: motor sensory deficit Psychiatric exam: PRESENT: appropriate affect, normal mood. ABSENT: homicidal ideation, suicidal ideation Skin exam: PRESENT: dry, intact, warm. ABSENT: cyanosis, rash Results Laboratory Results: WBC 8.1 10^3/uL (4.0-10.5) 06/25/19 05:09 RBC 4.80 10^6/uL (4.35-5.55) 06/25/19 05:09 Hgb 14.6 g/dL (13.5-17.0) 06/25/19 05:09 Hct 42.2 % (37.9-51.0) 06/25/19 05:09 MCV 88 fl (80-97) 06/25/19 05:09 MCH 30.4 pg (27.0-33.4) 06/25/19 05:09 MCHC 34.5 g/dL (32.0-36.0) 06/25/19 05:09 RDW 14.4 % (11.5-14.0) H 06/25/19 05:09 Plt Count 263 10^3/uL (150-450) 06/25/19 05:09 Lymph % (Auto) 19.3 % (13-45) 06/24/19 15:51 Amelia % (Auto) 6.3 % (3-13) 06/24/19 15:51 Eos % (Auto) 4.6 % (0-6) 06/24/19 15:51 Baso % (Auto) 0.7 % (0-2) 06/24/19 15:51 Absolute Neuts (auto) 7.3 10^3/uL (1.7-8.2) 06/24/19 15:51 Absolute Lymphs (auto) 2.0 10^3/uL (0.5-4.7) 06/24/19 15:51 Absolute Monos (auto) 0.7 10^3/uL (0.1-1.4) 06/24/19 15:51 Absolute Eos (auto) 0.5 10^3/uL (0.0-0.6) 06/24/19 15:51 Absolute Basos (auto) 0.1 10^3/uL (0.0-0.2) 06/24/19 15:51 Seg Neutrophils % 69.1 % (42-78) 06/24/19 15:51 Sodium 134.9 mmol/L (137-145) L 06/26/19 10:09 Potassium 4.2 mmol/L (3.6-5.0) 06/26/19 10:09 Chloride 103 mmol/L (98-107) 06/26/19 10:09 Carbon Dioxide 23 mmol/L (22-30) 06/26/19 10:09 Anion Gap 9 (5-19) 06/26/19 10:09 BUN 17 mg/dL (7-20) 06/26/19 10:09 Creatinine 0.92 mg/dL (0.52-1.25) 06/26/19 10:09 Est GFR ( Amer) > 60 (>60) 06/26/19 10:09 Est GFR (MDRD) Non-Af > 60 (>60) 06/26/19 10:09 Glucose 249 mg/dL (75-110) H 06/26/19 10:09 POC Glucose 201 mg/dL (70-110) H 06/25/19 15:32 Calcium 8.8 mg/dL (8.4-10.2) 06/26/19 10:09 Troponin I 0.040 ng/mL 06/25/19 16:18 NT-Pro-B Natriuret Pep 2060 pg/mL (<125) H 06/24/19 15:51 Triglycerides 121 mg/dL (<150) 06/25/19 05:04 Cholesterol 156.91 mg/dL (0-200) 06/25/19 05:04 LDL Cholesterol Direct 127 mg/dL (<100) H 06/25/19 05:04 VLDL Cholesterol 24.2 mg/dL (10-31) 06/25/19 05:04 HDL Cholesterol 27 mg/dL (>40) L 06/25/19 05:04 TSH 2.07 uIU/mL (0.47-4.68) 06/24/19 15:51 Urine Opiates Screen NEGATIVE 06/24/19 17:05 Urine Methadone Screen NEGATIVE 06/24/19 17:05 Ur Barbiturates Screen NEGATIVE 06/24/19 17:05 Ur Phencyclidine Scrn NEGATIVE 06/24/19 17:05 Ur Amphetamines Screen NEGATIVE 06/24/19 17:05 U Benzodiazepines Scrn NEGATIVE 06/24/19 17:05 Urine Cocaine Screen NEGATIVE 06/24/19 17:05 U Marijuana (THC) Screen NEGATIVE 06/24/19 17:05 COVID-19 Source Cancelled 06/24/19 15:51 COVID-19 ([facility]NNE) Cancelled 06/24/19 15:51 SARS-CoV-2 (PCR) NEGATIVE (NEGATIVE) 06/24/19 15:51 06/24/19 06/24/19 06/24/19 15:51 15:51 22:31 Troponin I 0.056 0.065 NT-Pro-B Natriuret Pep 2060 H 06/25/19 06/25/19 05:04 16:18 Troponin I 0.070 0.040 NT-Pro-B Natriuret Pep Impressions: Chest X-Ray 06/24/19 15:00 IMPRESSION: Borderline cardiomegaly without a superimposed acute cardiopulmonary process. Stroke Is this a Stroke Patient?: No Acute Heart Failure - Is this a Heart Failure Patient?: Yes Documentation of LVEF assessment?: Yes LVEF < 40%?: Yes-if yes answer questions a through e a) Discharged on ACEI?: N/A Discharged on ARB b) Discharges on ARB?: Yes c) Discharged on ARNI?: No-Document Contraindications Reason(s) not discharged on ARNI: New onset heart failure d) Discharged on evidence-based Beta bella(carvedilol, sustained release metoprolol succinate, or bisoprolol)?: Yes e) For LVEF <35%, discharged on Aldosterone antagonist?: Yes Reason(s) not discharged on Aldosterone antagonist for LVEF < 35%: Other 3. Anticoagulant therapy for permanect/persistent/paraoxysmal Afib or Aflutter: N/A Follow-up Appointment scheduled within 7 days?: Yes
[2019-06-27 14:02] VITALS: BP 137/76
== END 2019-06-27 14:45 | disposition home or self-care (01) | DRG 291 ==
LOC: ER 13:17 → EH 17:19 → 4S 22:51
PROVIDERS: ADMIT Internal Medicine; ATTEND Internal Medicine
DX: I11.0 Hypertensive heart disease with heart failure (principal); I50.21 Acute systolic (congestive) heart failure; I16.1 Hypertensive emergency; I43 Cardiomyopathy in diseases classified elsewhere; Z20.828 Contact with and (suspected) exposure to other viral communicable diseases; F17.210 Nicotine dependence, cigarettes, uncomplicated; I20.9 Angina pectoris, unspecified; Z82.49 Family history of ischemic heart disease and other diseases of the circulatory system
CPT/HCPCS: 36415; 71045; 80048; 80061; 80307; 82962; 83880; 84443; 84484; 85025; 85027; 87635; 93005; 93010; 93306; 99285; J0360; J1650; J1940; J3490; S0119